=== PATIENT | male | born 1945 | race Caucasian/White ===

== ENCOUNTER 2016-11-23 19:06 | Inpatient (IN) ==
--- NOTE | 2016-11-23 19:38 | Emergency Department Note ---
Arrival - Arrival Chief Complaint: Weakness Stated Complaint: weakness ED Nursing Triage Note: Patient to room via ems. Patient states that about 1 hr [facility] he started getting really weak. He states he has been feeling bad for a couple of days but this afternoon it is worse. Patient was ambulatory on scence. strength in arms and legs are equal bitlateral. No facial droop noted. Mode of Arrival: Stretcher Limitations: No Limitations Source: Patient Time Seen by Provider: 11/23/16 19:33 - History of Present Illness HPI Narrative: This 70-year-old white male presents with a history of 3 hours prior to presentation of being confused and ataxic with profound weakness to the point he needed aid in ambulation and getting up out of a chair. Family members do not report any slurring of speech or focal deficit, just generalized weakness. Prior to this time he had been active and alert with no particular complaints other than a mild headache he experienced yesterday behind the left eye. He does relate some shortness of breath as well as diaphoresis on onset of the situation but no chest pain, nausea, or vomiting.. He is diabetic but his Accu- Cheks were adequate. Patient has no significant cardiac history or prior stroke although he does have a history of bipolar disease. Currently he is in no acute distress lying in the bed Onset (ago): hour(s) (Patient presents 3 hours post onset of symptoms) Consistency: constant Allergies/Adverse Reactions: Allergies Allergy/AdvReac Type Severity Reaction Status Date / Time No Known Allergies Allergy Verified 11/23/16 19:12 Home Medications: Home Medications Medication Instructions Recorded Confirmed Type ARIPiprazole [Aripiprazole] 5 mg PO BEDTIME 03/21/15 05/10/15 History Amlodipine/Valsartan/Hcthiazid 1 each PO DAILY 03/21/15 05/10/15 History [Cftbr-Ehoob-Ypgi 10-320-25 mg] Carvedilol [Coreg] 12.5 mg PO BID 03/21/15 05/10/15 History Mirtazapine [Remeron] 30 mg PO BEDTIME 03/21/15 05/10/15 History amLODIPine [Norvasc] 10 mg PO DAILY 03/21/15 05/10/15 History Atorvastatin [Lipitor] 20 mg PO BEDTIME #30 tablet 03/23/15 05/10/15 Rx metFORMIN [Glucophage] 500 mg PO TID W/MEALS #90 tablet 03/23/15 05/10/15 Rx Levofloxacin Tab [Levaquin Tab] 750 mg PO DAILY #10 tablet 05/10/15 Rx Metoclopramide Tab [Reglan Tab] 5 mg PO ACHS #120 tablet NS 05/10/15 Rx Ranitidine HCl [Zantac] 300 mg PO BEDTIME #30 tablet 05/10/15 Rx Review of System - Review of System 12 point system: reviewed and no additional remarkable complaints except as stated - Review of System Constitutional: Present: as per HPI Respiratory: Present: as per HPI Cardiovascular: Present: as per HPI Gastrointestinal: Present: as per HPI Musculoskeletal: Present: as per HPI Neurological: Present: as per HPI Endocrine: Present: as per HPI Medical,Surgical,& Family Hx - Medical History Cardio: History of: Hypertension Psychological: History of: Bipolar Disorder, Depression Endocrine: History of: Diabetes Mellitus (NIDDM), Dyslipidemia Respiratory: History of: Respiratory Problems (ruputured diaphragm) Gastrointestinal: History of: GERD - Social History Smoking Status: Current every day smoker Frequency of Alcohol Use: None Type of Drug Use: None Exam Physical Examination: GENERAL: Obese white male in no acute distress. HEENT: Normocephalic. No trauma. Moist mucous membranes. EOMI. PERRLA. Left lid lag ENT NML NECK: Supple. No adenopathy. CARDIAC: Regular. No murmurs. Heart rate 67 CHEST: Clear to auscultation. No respiratory distress. O2 sat 95% ABDOMEN: Soft. Nontender. Active bowel sounds. EXTREMITIES: No trauma. Normal ROM. No pedal edema. SKIN: No diaphoresis. No rash. NEURO: Alert. Oriented 3. Motor, sensory, vibratory intact. Again noted was left lid lag no focal deficits. Vital Signs: Vital Signs Temperature 97.5 F L 11/23/16 19:06 Pulse Rate 67 11/23/16 19:06 Respiratory Rate 20 11/23/16 19:15 Blood Pressure 129/77 11/23/16 19:06 O2 Sat by Pulse Oximetry 95 11/23/16 19:06 Course - Reevaluation(s) Reevaluation #1: Discussed with patient need for hospitalization for possible acute stroke. - Consultations Consultation #1: Discussed with hospitalist service who will admit for further evaluation and treatment of probable new lacunar infarct Results - Labs CBC & BMP: 11/23/16 19:11 11/23/16 19:11 Labs: I have reviewed the laboratory noted the normal results. - Impressions EKG: Sinus rhythm at 64. Normal NV interval with right bundle branch block. Nonspecific ST changes. Noted acute injury pattern noted. - Diagnostic Findings Procedure: Chest x-ray: image reviewed by me, report reviewed by me ( Cardiomegaly), CT: image reviewed by me, report reviewed by me (Chronic right basal ganglia lacunar infarct with microvascular ischemia and cerebral atrophy.) Disposition Clinical Impression: Presumed new lacunar infarct, Cardiomegaly Case discussed with: patient, patient's family Disposition: Still a Patient Condition: Stable Time of Disposition: 20:51
[2016-11-23 19:45] LABS: Basophils # 0.1 10*3/uL (0.0-0.2); Eosinophils # 0.5 10*3/uL (0.0-0.87); Hemoglobin 15.6 GM/DL (14.0-18.0); Immature Granulocytes % 0.6 %; Immature Granulocytes Absolute 0.06 #; Lymphocytes # 3.2 10*3/uL (1.4-4.0); Lymphocytes % 31.6 % (21.2-54.2); Mean Corpuscular HGB Conc 34.7 GM/DL (32-36); Mean Corpuscular Hemoglobin 31 PG (27-34); Mean Corpuscular Volume 88.2 FL (87-102); Monocytes # 0.8 10*3/uL (0.11-0.8); Monocytes % 7.9 % (1.7-12.7); Neutrophils # 5.5 10*3/uL (1.4-7.4); Neutrophils % 53.9 % (38.7-73.9); Platelet Count 209 T/CUMM (130-400); White Blood Count 10.1 T/CUMM (4-12)
[2016-11-23 19:48] LABS: PT Patient Result 10.7 SECS; Partial Thromboplastin Time 33.6 SECS (0-40)
[2016-11-23 20:05] LABS: Alanine Aminotransferase 28 U/L (16-61); Albumin 3.9 G/DL (3.4-5.0); Alkaline Phosphatase 89 U/L (45-117); Aspartate Amino Transferase 17 U/L (0-37); Blood Urea Nitrogen 12 MG/DL (7-18); Calcium 9.3 MG/DL (8.5-10.1); Free T4 (Free Thyroxine) 0.83 NG/DL (0.76-1.46); Glucose 103 MG/DL (74-106); Osmolality,Calculated 276.5 MOS/KG (273-304); Sodium 139 MMOL/L (136-145); Total Protein 6.4 G/DL (6.4-8.3); Troponin I Only < 0.015 NG/ML (0.00-0.045)
--- NOTE | 2016-11-23 20:06 | CT Report ---
Exam: CT scan of brain without contrast Date: 11/23/2016 Indication: Mental status changes Comparison: None Patient's classification: Emergency department Technical: Images were obtained from the skull base to the vertex without the use of intravenous contrast. Dose reduction was performed with decreasing kv and mA and automated exposure Total DLP: 997.9 mGy*cm Findings: The brainstem and cerebellum are intact. There is a low density in the right basal ganglia measuring approximate 7.3 mm suggests a small lacunar infarction. Minimal atrophy changes are suspected the ventricles are unremarkable. Small vessel disease is present. Paranasal sinuses globes and cell and mastoids are otherwise intact. Impression: 1. Small lacunar infarction in the right basal ganglia age undetermined. But appears chronic, I have no previous studies available for review 2. Small vessel ischemic change and mild atrophy 3. No obvious acute hemorrhage present. PROCEDURE INTERPRETED AT [facility] DEPARTMENT OF RADIOLOGY Final Report Signed by: Dr. Louie Stevenson
--- NOTE | 2016-11-23 20:08 | EKG Report ---
Please refer to the EKG image. Final interpretation is pending.
[2016-11-23 20:30] LABS: Apearance,Urine Slightly Hazy (Clear); Bilirubin,Urine Negative (Negative); Blood, Urine Negative (Negative); Glucose,Urine (UA) Negative (Negative); Ketones,Urine Negative (Negative); Mucus,Urine Occasional /LPF (Occasional); Nitrite,Urine Negative (Negative); Protein,Urine Negative; RBC,Urine <1 /HPF (0-4); Urine Color Yellow (Yellow); Urine Specific Gravity 1.011 (1.001-1.035); Urine Urobilinogen < 2.0 EU/DL (0.2-1.0); WBC,Urine 1 /HPF (0-6)
--- NOTE | 2016-11-23 20:40 | XRay Report ---
Exam: XR chest 1V portable Date: 11/23/2016 7:34 PM Indication: Altered mental status Comparison: 03/21/2015 Technical: AP portable Findings: Cardiomegaly is present. External cardiac leads are present. No obvious consolidating infiltrate or effusion. Mediastinum and bony structures are otherwise intact. Impression: 1. Cardiomegaly without decompensation or acute infiltrates PROCEDURE INTERPRETED AT [facility] DEPARTMENT OF RADIOLOGY Final Report Signed by: Dr. Louie Stevenson
[2016-11-23 20:41] LABS: Barbiturates Screen,Urine Negative (Negative); Benzodiazepines Screen,Urine Negative (Negative); Cannabinoid Screen,Urine Negative (Negative); Opiate Screen,Urine Negative (Negative); Phencyclidine Screen,Urine Negative (Negative)
--- NOTE | 2016-11-23 20:50 | Hospitalist History & Physical ---
Assessment and Plan (1) Gait disturbance Status: Acute Assessment and plan: The patient is admitted to the hospital for evaluation of gait disturbance and generalized weakness consistent with a lacunar infarction. The patient has an old lacune seen on CAT scan. I suspect this is another small lacunar infarction. The risk of thrombolytic agent for such a small distribution stroke is greater than the benefit that I can perceive. The patient will be admitted to telemetry monitoring and we will give antihypertensive medication. Will check lipid levels, carotid Doppler ultrasound, and MRI scan of brain in the morning. Will obtain consultation with Dr. George Mayes. Current Visit: Yes (2) DM2 (diabetes mellitus, type 2) Status: Acute Current Visit: Yes Qualifiers: Diabetes mellitus complication status: with circulatory complication Diabetes mellitus complication detail: with other circulatory complications Diabetes mellitus correction insulin use: without ferry terminal agent use Qualified Code( s): E11.59 - Type 2 diabetes mellitus with other circulatory complications (3) History of CVA in adulthood Status: Acute Current Visit: Yes (4) Hypertension Status: Chronic Current Visit: No History of Present Illness Chief complaint: Gait disturbance and weakness History of present illness: Mr. Jenkins is a 70 year old male with history of diabetes mellitus type 2 and essential hypertension. The patient was at home in his usual state of health. The patient's noted that he was stumbling and that he was generally weak. The patient did not have lateralizing symptoms. The patient had some slurring of speech without facial weakness. The patient's symptoms were moderate, continuous, and have begun to improve. The symptoms are not associated with fever, chills, shortness of breath. The patient is admitted to the hospital for further evaluation of strokelike symptoms. Home Medications Medication Instructions Recorded Confirmed Type ARIPiprazole [Aripiprazole] 5 mg PO BEDTIME 03/21/15 05/10/15 History Amlodipine/Valsartan/Hcthiazid 1 each PO DAILY 03/21/15 05/10/15 History [Baqss-Puvau-Vnvq 10-320-25 mg] Carvedilol [Coreg] 12.5 mg PO BID 03/21/15 05/10/15 History Mirtazapine [Remeron] 30 mg PO BEDTIME 03/21/15 05/10/15 History amLODIPine [Norvasc] 10 mg PO DAILY 03/21/15 05/10/15 History Atorvastatin [Lipitor] 20 mg PO BEDTIME #30 tablet 03/23/15 05/10/15 Rx metFORMIN [Glucophage] 500 mg PO TID W/MEALS #90 tablet 03/23/15 05/10/15 Rx Levofloxacin Tab [Levaquin Tab] 750 mg PO DAILY #10 tablet 05/10/15 Rx Metoclopramide Tab [Reglan Tab] 5 mg PO ACHS #120 tablet NS 05/10/15 Rx Ranitidine HCl [Zantac] 300 mg PO BEDTIME #30 tablet 05/10/15 Rx Allergies Allergy/AdvReac Type Severity Reaction Status Date / Time No Known Allergies Allergy Verified 11/23/16 19:12 Medical,Surgical,& Family Hx - Medical History Cardio: History of: Hypertension Psychological: History of: Bipolar Disorder, Depression Endocrine: History of: Diabetes Mellitus (NIDDM), Dyslipidemia Respiratory: History of: Respiratory Problems (ruputured diaphragm) Gastrointestinal: History of: GERD - Family History Family History: Reports;: Family Hypertension - Social History Smoking Status: Current every day smoker Frequency of Alcohol Use: None Type of Drug Use: None Marital Status: Lives With:: Spouse Functional capacity: independent ambulation 12 point system: reviewed and no additional remarkable complaints except as stated Exam - Constitutional Vitals: Period Temp Pulse Resp BP Sys/Sin Pulse Ox Last 24 Hr 97.5 F-97.5 F 67-67 20-20 129-129/77-77 95 Exam: Constitutional System: Mild distress. No tremulousness. Head: Normocephalic, atraumatic. Ears, Nose and Throat System: No evidence of Otitis or Mastoiditis. No epistaxis or discharge Eyes System: Pupils equal, round, and reactive. Extraocular muscles intact. The patient has some lid lag but the weakness is not localizing Neck: Supple, without adenopathy, No jugular venous distention. No thyromegaly , neck mass, or prior surgery apparent. Respiratory System: Chest clear to auscultation. Cardiovascular System: Heart with regular rate and rhythm. No murmur. GI System: Abdomen soft, nontender. Normo active bowel sounds present. Musculoskeletal System: limbs with no pedal edema. Full distal pulses. Neurological System: No discernable sensory deficit. No aphasia Psychiatric System: Conversation is rational Results - Labs CBC & BMP: 11/23/16 19:11 11/23/16 19:11 Lab Results: I have reviewed the past 24 hour labs - EKG EKG shows: sinus rhythm - Diagnostic Findings Procedure: CT: report reviewed by me (CT scan of brain reveals an old lacunar infarction)
[2016-11-23 21:10] LABS: Platelet Estimate Normal
[2016-11-23] MEDS ORDERED: ONDANSETRON 4 MG/2 ML VIAL IV PRN (21:43)
[2016-11-23] MEDS ORDERED: NIFEdipine 10 MG CAPSULE PO PRN (21:43)
[2016-11-23] MEDS ORDERED: DEXTROSE 50% 25 GM/50 ML VIAL IV PRN (21:43)
[2016-11-23] MEDS ORDERED: LABETALOL 20 MG/4 ML SYRINGE IV PRN (21:43)
[2016-11-23] MEDS ORDERED: ACETAMINOPHEN 325 MG TABLET PO PRN (21:43)
[2016-11-23] MEDS ORDERED: GLUCAGON 1 MG VIAL IM PRN (21:43)
[2016-11-23] MEDS: MIRTAZAPINE 30 MG TABLET PO SCH (22:03)
[2016-11-23] MEDS: ENOXAPARIN 40 MG/0.4 ML SYRINGE SUBCUT SCH (22:03)
[2016-11-23] MEDS: ATORVASTATIN 20 MG TABLET PO SCH (22:03)
[2016-11-23] MEDS: SODIUM CHLORIDE 0.9% 1,000 ML IV SCH (22:03)
[2016-11-23] MEDS ORDERED: NICOTINE 21 MG/24 HR PATCH TRANSDERM PRN (22:05)
[2016-11-24 03:29] LABS: Basophils # 0.1 10*3/uL (0.0-0.2); Basophils % 0.6 % (0.0-0.8); Eosinophils # 0.4 10*3/uL (0.0-0.87); Eosinophils % 3.6 % (0.00-10.9); Hematocrit 41.3 VOL% (42.0-52.0); Hemoglobin 14.4 GM/DL (14.0-18.0); Immature Granulocytes % 0.6 %; Immature Granulocytes Absolute 0.06 #; Lymphocytes # 1.9 10*3/uL (1.4-4.0); Mean Corpuscular HGB Conc 34.9 GM/DL (32-36); Mean Corpuscular Hemoglobin 30 PG (27-34); Mean Corpuscular Volume 87.1 FL (87-102); Monocytes # 0.7 10*3/uL (0.11-0.8); Monocytes % 7.1 % (1.7-12.7); Neutrophils # 7.3 10*3/uL (1.4-7.4); Neutrophils % 70.1 % (38.7-73.9); Platelet Count 199 T/CUMM (130-400); Red Blood Count 4.74 MC/CUMM (3.8-5.5); Red Cell Distribution Width 12.1 % (9.3-17.3); White Blood Count 10.4 T/CUMM (4-12)
[2016-11-24 03:59] LABS: Calcium 8.7 MG/DL (8.5-10.1); Osmolality,Calculated 282.4 MOS/KG (273-304); Potassium 3.7 MMOL/L (3.5-5.1)
[2016-11-24 04:04] LABS: Blood Urea Nitrogen 13 MG/DL (7-18); Calcium 8.6 MG/DL (8.5-10.1); Glucose 194 MG/DL (74-106); Magnesium 1.9 MG/DL (1.8-2.4); Osmolality,Calculated 283.4 MOS/KG (273-304); Potassium 3.7 MMOL/L (3.5-5.1); Sodium 140 MMOL/L (136-145); Troponin I Only < 0.015 NG/ML (0.00-0.045)
[2016-11-24 04:05] LABS: Risk Ratio 2.59; VLDL CHOLESTEROL 29.6 MG/DL
[2016-11-24] MEDS: INSULIN LISPRO 100 UNIT/ML SUBCUT SCH ×4 (07:30→22:38)
--- NOTE | 2016-11-24 07:49 | Ultrasound Report ---
Bilateral carotid Doppler. Grayscale, color-flow, and spectral analysis performed and interpreted. Indication: Gait disturbance. Mild calcific plaque is noted at the right carotid bulb and origin of the right internal carotid artery. The right internal carotid artery peak systolic velocity is 85 cm/s, with an IC/CC ratio of 1.2. The left internal carotid artery peak systolic velocity is 65 cm/s, with an IC/CC ratio 0.9. There is antegrade flow within each vertebral artery. Impression: Using in a SPECT criteria, findings consistent with less than 50% stenosis bilaterally. PROCEDURE INTERPRETED AT [facility] DEPARTMENT OF RADIOLOGY Final Report Signed by: Dr. Trinity Gonzalez
[2016-11-24] MEDS: ASPIRIN 325 MG TABLET PO SCH (08:48)
[2016-11-24] MEDS: VALSARTAN 160 MG TABLET PO SCH (08:48)
[2016-11-24] MEDS: amLODIPine 10 MG TABLET PO SCH (08:49)
[2016-11-24] MEDS: PANTOPRAZOLE 40 MG TABLET PO SCH (08:51)
--- NOTE | 2016-11-24 09:27 | EKG Report ---
Please refer to the EKG image. Final interpretation is pending.
[2016-11-24] MEDS: hydroCHLOROthiazide 25 MG TABLET PO SCH (10:02)
--- NOTE | 2016-11-24 11:17 | XRay Report ---
Orbits for MRI. No radiodense foreign body is seen at or about the orbits. PROCEDURE INTERPRETED AT [facility] DEPARTMENT OF RADIOLOGY Final Report Signed by: Dr. Trinity Gonzalez
--- NOTE | 2016-11-24 13:15 | Magnetic Resonance Report ---
Referring physician: Aren Strong Exam: MRI brain without contrast Date: November 24, 2016 Comparison: CT brain without contrast November 23, 2016 Reason: Gait disturbance The patient is an inpatient who was admitted on November 23, 2016. Technique: MRI of the brain was performed without the use of contrast. Obtained images include sagittal T1, axial diffusion-weighted, axial FLAIR, axial T2, coronal T2, axial gradient and axial T1 sequences. A 1.5 Venus magnet was used. Findings: There is mild generalized cerebral atrophy/volume loss, which is upper normal for age. Small scattered areas of T2/FLAIR hyperintensity are seen within the cerebral white matter bilaterally. This is nonspecific but is most consistent with mild chronic microvascular ischemic change. Less likely considerations include a demyelinating process, vasculitis or viral process. There are small remote infarctions within the right basal ganglia, and there is a small remote subcortical infarction within the superior/anterior aspect of the left parietal lobe No hydrocephalus or midline shift is present. There is no evidence of recent intracranial hemorrhage, abnormal mass effect or an acute infarction. No abnormal extra-axial fluid collection is identified, and major vascular flow voids are visualized. The patient is likely status post right cataract surgery. The orbits, sella and brainstem are unremarkable. The paranasal sinuses and mastoid air cells are clear. Impression: 1. No acute intracranial process is identified. 2. Small remote infarctions within the right basal ganglia and small remote subcortical infarction at the superior/anterior aspect of the left parietal lobe. 3. Probable mild chronic microvascular ischemic change. PROCEDURE INTERPRETED AT [facility] DEPARTMENT OF RADIOLOGY Final Report Signed by: Dr. Suresh Khan
--- NOTE | 2016-11-24 15:23 | Neurology Consult Note ---
History of Present Illness History of present illness: Mr. Jenkins is a 70 year old right-handed white gentleman with past medical history significant for diabetes mellitus type 2 and essential hypertension. The patient was at home in his usual state of health. The patient's noted that he was stumbling and that he was generally weak. The patient did not have lateralizing symptoms. The patient had some slurring of speech without facial weakness. reported that he was quite confused and disoriented and talking out of his head. The patient's symptoms were moderate, continuous, and have begun to improve. also reporting that he is been having increasing memory difficulties which is been going on for last several months. He is being very forgetful and having short-term memory difficulties. MRI of the brain reveals no acute abnormalities. Home Medications Medication Instructions Recorded Confirmed Type ARIPiprazole [Aripiprazole] 5 mg PO BEDTIME 03/21/15 05/10/15 History Amlodipine/Valsartan/Hcthiazid 1 each PO DAILY 03/21/15 05/10/15 History [Sxfzf-Wguma-Ofri 10-320-25 mg] Carvedilol [Coreg] 12.5 mg PO BID 03/21/15 05/10/15 History Mirtazapine [Remeron] 30 mg PO BEDTIME 03/21/15 05/10/15 History amLODIPine [Norvasc] 10 mg PO DAILY 03/21/15 05/10/15 History Atorvastatin [Lipitor] 20 mg PO BEDTIME #30 tablet 03/23/15 05/10/15 Rx metFORMIN [Glucophage] 500 mg PO TID W/MEALS #90 tablet 03/23/15 05/10/15 Rx Levofloxacin Tab [Levaquin Tab] 750 mg PO DAILY #10 tablet 05/10/15 Rx Metoclopramide Tab [Reglan Tab] 5 mg PO ACHS #120 tablet NS 05/10/15 Rx Ranitidine HCl [Zantac] 300 mg PO BEDTIME #30 tablet 05/10/15 Rx Allergies Allergy/AdvReac Type Severity Reaction Status Date / Time No Known Allergies Allergy Verified 11/23/16 19:12 12 point system: reviewed and no additional remarkable complaints except as stated Medical,Surgical,& Family Hx - Medical History Cardio: History of: Hypertension Psychological: History of: Bipolar Disorder, Depression Endocrine: History of: Diabetes Mellitus (NIDDM), Dyslipidemia Respiratory: History of: Respiratory Problems (ruputured diaphragm) Gastrointestinal: History of: GERD - Family History Family History: Reports;: Family Hypertension - Social History Smoking Status: Current every day smoker Frequency of Alcohol Use: None Type of Drug Use: None Exam - Constitutional Vitals: Period Temp Pulse Resp BP Sys/Sin Pulse Ox Last 24 Hr 97.1 F-98.2 F 63-86 18-20 130-150/77-86 95-96 Exam: GENERAL: Patient is in no acute distress. NECK: Neck is supple. There is no JVD. No carotid bruits present. No thyroid masses. CVS: First and second heart sounds are normal. There is no S3 present. Regular rate and rhythm. RESPIRATORY: Lungs are clear to auscultation without any rales or rhonchi. ABDOMEN: Soft and non-tender. Bowel sounds are present. There is no hepatosplenomegaly. EXT: There is no palpable edema. Peripheral pulses are present. Skin: No rashes Central Nervous system: General: Alert, awake and Oriented x 3 Speech: Fluent Comprehension: Intact and normal Facial expressions: Normal Cranial Nerves: CN1/Olfactory: Normal CN II/ Optic: Normal, Visual Rendon unreliable CN III, and : PHYLICIA & EOMI CN V: Normal & intact CN VII: face is symmetric CNVIII: Normal CN XI/X/XI/XII: Intact and Normal Motor: Bulk and Tone is normal. Strength in the right 4+/5 Strength in the left 4+/5 Sensory: for all the modalities of PP, LT and temp sense Reflexes: 1+ and symmetrical Cerebellar function: Normal finger to nose and heel to webb testing. Toes: Equivocal Gait: Not tested Results - Labs CBC & BMP: 11/24/16 02:52 11/24/16 02:52 Assessment and Plan (1) Delirium due to another medical condition Status: Acute Assessment and plan: Suspect underlying dementia as well. No intervention indicated at this time. will work him up as an out patient. Thank you for the consult follow-up in 4 weeks Current Visit: Yes Specialty Discharge - Follow Up or Referrals Follow up with: Pranay Carrero MD [Physician] - 1 Month
--- NOTE | 2016-11-24 15:32 | Hospitalist Progress Note ---
Assessment and Plan (1) Gait disturbance Status: Acute Assessment and plan: The patient is admitted to the hospital for evaluation of gait disturbance and generalized weakness consistent with a lacunar infarction. The patient has an old lacune seen on CAT scan. The patient has no evidence of new stroke. The patient had some delirium last night. I am going to reduce Shepherd and restart Neurontin at lower dose. If the patient's delirium does not return tonight I anticipate him discharge home tomorrow. Dr. George Mayes believes the patient may have some early dementia symptoms which are worsening his delirium and suggest that he needs an outpatient dementia evaluation Current Visit: Yes (2) DM2 (diabetes mellitus, type 2) Status: Acute Current Visit: Yes Qualifiers: Diabetes mellitus complication status: with circulatory complication Diabetes mellitus complication detail: with other circulatory complications Diabetes mellitus emt intermediate insulin use: without fci use Qualified Code( s): E11.59 - Type 2 diabetes mellitus with other circulatory complications (3) History of CVA in adulthood Status: Acute Current Visit: Yes (4) Hypertension Status: Chronic Current Visit: No Hospitalist: Subjective Interval history: The patient was admitted to the hospital with generalized weakness and some delirium symptoms. I coordinated care with Dr. George Mayes today. The patient' s MRI scan reveals previous lacunar infarctions without new acute CVA. I had family discussion with the patient's and we discussed the etiology and treatment of delirium. The patient had been taking chronic opiate at the pain clinic and has recently discontinued long-acting narcotic. Exam - Constitutional Vitals: Period Temp Pulse Resp BP Sys/Sin Pulse Ox Last 24 Hr 97.1 F-98.2 F 63-86 18-20 130-150/77-86 95-96 Exam: Constitutional System: No distress. No tremulousness. The patient is presently oriented in 3 respects Head: Normocephalic, atraumatic. Ears, Nose and Throat System: No evidence of Otitis or Mastoiditis. No epistaxis or discharge Eyes System: Pupils equal, round, and reactive. Extraocular muscles intact. The patient has some lid lag but the weakness is not localizing Neck: Supple, without adenopathy, No jugular venous distention. No thyromegaly , neck mass, or prior surgery apparent. Respiratory System: Chest clear to auscultation. Cardiovascular System: Heart with regular rate and rhythm. No murmur. GI System: Abdomen soft, nontender. Normo active bowel sounds present. Musculoskeletal System: limbs with no pedal edema. Full distal pulses. Neurological System: No discernable sensory deficit. No aphasia Psychiatric System: Conversation is rational Results - Labs CBC & BMP: 11/24/16 02:52 11/24/16 02:52 Lab Results: I have reviewed the past 24 hour labs - Diagnostic Findings Procedure: MRI: report reviewed by me (The patient's MR scan reveals previous lacunar infarctions without acute CVA) Quality Measures - Stroke Onset of Symptoms Date: 11/21/16 Specialty Discharge - Follow Up or Referrals Follow up with: Pranay Carrero MD [Physician] - 1 Month
[2016-11-24] MEDS: MIRTAZAPINE 30 MG TABLET PO SCH (20:41)
[2016-11-24] MEDS: ATORVASTATIN 20 MG TABLET PO SCH (20:41)
[2016-11-24] MEDS: GABAPENTIN 100 MG CAPSULE PO SCH (20:41)
[2016-11-24] MEDS: ENOXAPARIN 40 MG/0.4 ML SYRINGE SUBCUT SCH (20:43)
[2016-11-25] MEDS: SODIUM CHLORIDE 0.9% 1,000 ML IV SCH (09:18)
[2016-11-25] MEDS: GABAPENTIN 100 MG CAPSULE PO SCH (09:20)
[2016-11-25] MEDS: hydroCHLOROthiazide 25 MG TABLET PO SCH (09:20)
[2016-11-25] MEDS: VALSARTAN 160 MG TABLET PO SCH (09:21)
[2016-11-25] MEDS: ASPIRIN 325 MG TABLET PO SCH (09:21)
[2016-11-25] MEDS: amLODIPine 10 MG TABLET PO SCH (09:21)
[2016-11-25] MEDS: PANTOPRAZOLE 40 MG TABLET PO SCH (09:21)
[2016-11-25] MEDS: INSULIN LISPRO 100 UNIT/ML SUBCUT SCH ×2 (09:23→13:31)
--- NOTE | 2016-11-25 10:18 | Discharge Summary ---
Hospital Course - Hospital Course Hospital Course: The patient was admitted to the hospital with some delirium last weakness. The patient had neurology evaluation with Dr. George Mayes. MRI scan revealed some old lacunar infarctions but no new stroke. Carotid Doppler studies did not reveal any significant stenosis. Dr. George Mayes was concerned that the patient may have some dementia symptoms. We adjusted the patient's medication and reduced any medicines which might cause delirium. The patient will follow up with Dr. George Mayes as an outpatient. On the date of discharge, the patient's chest is clear and abdomen soft. Heart has regular rate and rhythm. Sensorium is clear and he did not have any wandering or delirium noted during the last night. Uico-ms-yarg time required during discharge was 32 minutes - Time spent with patient Time with patient DS: Greater than 30 minutes Diagnosis - Discharge Diagnosis (1) Gait disturbance Status: Resolved (2) DM2 (diabetes mellitus, type 2) Status: Chronic (3) History of CVA in adulthood Status: Chronic (4) Hypertension Status: Chronic Specialty Discharge - Follow Up or Referrals Follow up with: Pranay Carrero MD [Physician] - 1 Month Discharge Plan - Discharge Data Disposition: Disch To Home/Self Care Condition at Discharge: Stable Discharge Diet: diabetic diet Activity: resume usual activities as tolerated - Discharge Medications New Aspirin Tab 325 mg PO DAILY #100 tablet Gabapentin Cap/Tab [Neurontin Cap/Tab] 200 mg PO BID #100 capsule Continue amLODIPine [Norvasc] 10 mg PO DAILY Mirtazapine [Remeron] 30 mg PO BEDTIME ARIPiprazole [Aripiprazole] 5 mg PO BEDTIME Amlodipine/Valsartan/Hcthiazid [Qqouv-Yzdei-Ewdr 10-320-25 mg] 1 each PO DAILY Carvedilol [Coreg] 12.5 mg PO BID metFORMIN [Glucophage] 500 mg PO TID W/MEALS #90 tablet Atorvastatin [Lipitor] 20 mg PO BEDTIME #30 tablet Metoclopramide Tab [Reglan Tab] 5 mg PO ACHS #120 tablet NS Discontinued Levofloxacin Tab [Levaquin Tab] 750 mg PO DAILY #10 tablet Ranitidine HCl [Zantac] 300 mg PO BEDTIME #30 tablet - Follow Up or Referral Follow Up: Pranay Carrero MD [Physician] - 1 Month - Forms/Instructions Instructions: Ischemic Stroke (DC), Self Care Measures After a Stroke (DC) Exam - Constitutional Vitals: Period Temp Pulse Resp BP Sys/Sin Pulse Ox Last 24 Hr 97.1 F-98.3 F 62-82 17-20 101-145/54-81 92-97 Discharge Results Labs on day of discharge: Labs from last 24 hours 11/25/16 11/24/16 11/24/16 07:12 19:09 15:47 POC Glucose 126 H 152 H 140 H 11/24/16 11:29 POC Glucose 105 DS: Provider Date of admission: 11/23/16 20:36 Primary care physician: Desire Nathan MD Attending physician on admission: Aren Strong MD Consults: 11/23/16 21:43 Consult to Case Mgmt/Social Srvs [CONS] Routine Reason for Case Mgmt/Social Srvs: Discharge Planning Consult to Occupational Therapy [CONS] Routine Reason for Occupational Therapy: Evaluate and Treat Start Therapy: Tomorrow Consult Comment: Stroke Consult to Physical Therapy [CONS] Routine Reason for Physical Therapy: Evaluate and Treat Start Therapy: Tomorrow Consult Comment: stroke Consult to Physician [CONS] Routine Comment: gait disturbance, possible acute cva Consulting Provider: Pranay Carrero Consult to Specialist Group: Neurology Person Notified: Tanya Date Notified: 11/24/16 Time Notified: 11:42 Consult Notification Comment: Notified of neurology consult for Dr. Carrero to see Discharging clinician: Aren Strong MD
[2016-11-25 12:09] VITALS: BP 145/85
== END 2016-11-25 14:15 | disposition home or self-care (01) | DRG 884 ==
LOC: EDUNIT# → EDBD → N.ED 19:06 → N.EDINP 20:36 → N.5E 21:09
PROVIDERS: ADMIT Internal Medicine; ATTEND Internal Medicine

== ENCOUNTER 2016-12-02 21:24 | Observation (INO) ==
[2016-12-02] MEDS ORDERED: ALBUTEROL/IPRATROPIUM 3 ML NEB RESP TX STA (22:22)
[2016-12-02] MEDS ORDERED: methylPREDNISolone SOD SUC 125 MG/2 ML VIAL IV STA (22:22)
--- NOTE | 2016-12-02 22:31 | EKG Report ---
Stationary ECG Study 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
--- NOTE | 2016-12-02 22:32 | Emergency Department Note ---
IJulieta Kasabria, am scribing for, and in the presence of, Abimael Castillo MD 22:28. IJonathan Charles R, MD, personally performed the services described in this documentation, ascribed by Vee Rendon in my presence, and it is both accurate and complete 232 . Arrival - Arrival Chief Complaint: Weakness Stated Complaint: possible stroke/confusion/hallucinations ED Nursing Triage Note: Pt family thinks he is having another stroke c/o confused, weakness, numbess in both legs, left eye droping. Pt was admitted from ED approx 1 week ago for poss stroke. Mode of Arrival: Ambulatory Limitations: No Limitations Source: Patient Time Seen by Provider: 12/02/16 21:45 - History of Present Illness HPI Narrative: This is a 70 y/o white male presenting to the ED with c/o possibly having another stroke, confusion, numbness to lower legs bilaterally, weakness, left eye drop, and visual hallucinations. Pt was hospitalized with a stroke one week ago that effected his left side. He now states he is having visual hallucination and paranoia of people "trying to get him". Pt is blind in his right eye. He has an appointment with Dr. Garcia which is scheduled for December 14. While admitted he saw Dr. Strong and Dr. Carrero. He takes ASA daily. He has a PMHx of HTN, bipolar disorder, depression, and ruptured diaphragm. Consistency: constant Severity: moderate Allergies/Adverse Reactions: Allergies Allergy/AdvReac Type Severity Reaction Status Date / Time No Known Allergies Allergy Verified 12/02/16 21:35 Home Medications: Home Medications Medication Instructions Recorded Confirmed Type ARIPiprazole [Aripiprazole] 5 mg PO BEDTIME 03/21/15 11/24/16 History Amlodipine/Valsartan/Hcthiazid 1 each PO DAILY 03/21/15 11/24/16 History [Qdrzb-Mlwxf-Hxti 10-320-25 mg] Carvedilol [Coreg] 12.5 mg PO BID 03/21/15 11/24/16 History Mirtazapine [Remeron] 30 mg PO BEDTIME 03/21/15 11/24/16 History amLODIPine [Norvasc] 10 mg PO DAILY 03/21/15 11/24/16 History Atorvastatin [Lipitor] 20 mg PO BEDTIME #30 tablet 03/23/15 11/24/16 Rx metFORMIN [Glucophage] 500 mg PO TID W/MEALS #90 tablet 03/23/15 11/24/16 Rx Metoclopramide Tab [Reglan Tab] 5 mg PO ACHS #120 tablet NS 05/10/15 11/24/16 Rx Aspirin Tab 325 mg PO DAILY #100 tablet 11/25/16 Rx Gabapentin Cap/Tab [Neurontin 200 mg PO BID #100 capsule 11/25/16 Rx Cap/Tab] Review of System - Review of System 12 point system: reviewed and no additional remarkable complaints except as stated - Review of System Constitutional: Absent: chills, fever, weakness Eyes: Present: other (left eye drop ) Head/Ears/Nose/Throat: Absent: earache, nasal drainage Respiratory: Absent: cough, respiratory distress, wheezing Cardiovascular: Absent: chest pain, dyspnea on exertion Gastrointestinal: Absent: abdominal pain, nausea, vomiting Genitourinary male: Absent: dysuria Musculoskeletal: Absent: arm pain, back pain, leg pain, neck pain Skin: Absent: rash Neurological: Present: headache, weakness, numbness (BLE ), confusion, abnormal gait. Absent: vertigo Psychiatric: Present: visual hallucinations (paranoia and people trying to "get him") Hematological/Lymphatic: Absent: easy bleeding Allergic/Immunologic: Absent: facial swelling Medical,Surgical,& Family Hx - Medical History Cardio: History of: Hypertension Psychological: History of: Bipolar Disorder, Depression Endocrine: History of: Dyslipidemia Respiratory: History of: Respiratory Problems (ruputured diaphragm) Gastrointestinal: History of: GERD - Social History Smoking Status: Current every day smoker Frequency of Alcohol Use: None Type of Drug Use: None Exam Vital Signs: Vital Signs Temperature 99.1 F 12/02/16 21:26 Pulse Rate 64 12/02/16 23:55 Respiratory Rate 16 12/02/16 23:55 Blood Pressure 138/76 12/02/16 21:26 O2 Sat by Pulse Oximetry 94 L 12/02/16 23:55 - General General appearance: alert, in no apparent distress, other (confused) - Head Head exam: Present: atraumatic, normocephalic, normal inspection - Eye Eye exam: Present: PERRL, EOMI. Absent: normal appearance (left eye dropping; blind in right eye ) - ENT ENT exam: Present: normal exam, normal oropharynx, mucous membranes moist, TM's normal bilaterally, normal external ear exam - Neck Neck exam: Present: normal inspection, full ROM, trachea midline. Absent: tenderness - Chest Chest inspection: Present: normal inspection, symmetric chest wall rise. Absent : tenderness - Respiratory Respiratory exam: Present: rales (bilateral ), wheezes (bilateral ). Absent: normal lung sounds bilaterally - Cardiovascular Cardiovascular exam: Present: regular rate, normal rhythm, normal heart sounds, murmur - Abdominal Exam Abdominal exam: Present: soft, normal bowel sounds. Absent: distention, tenderness - Extremities Exam Extremities exam: Present: normal inspection, full ROM, normal capillary refill. Absent: tenderness, calf tenderness - Back Exam Back exam: Present: normal inspection, full ROM. Absent: tenderness - Neurological Exam Neurological exam: Present: alert, oriented X3, CN II-XII intact, normal gait, other (drift to upper and lower extremities; left sided weakness ). Absent: reflexes normal - Psychiatric Psychiatric exam: Present: normal affect, other (visual hallucinations ). Absent: normal mood - Skin Skin exam: Present: warm, dry, intact, normal color. Absent: rash, diaphoresis Course - Consultations Consultation #1: Hospitalist will admit patient Time: 00:40 Results - Labs CBC & BMP: 12/02/16 21:50 12/02/16 21:50 Disposition Clinical Impression: Confusion, Altered mental status, Hallucination Case discussed with: patient, patient's family Disposition: Still a Patient Condition: Guarded Time of Disposition: 00:40 NIH Stroke Score - Stroke Score Initial Assessment Level of Consciousness: Drowsy Level of Consciousness Questions: Answers Both Correctly Level of Consciousness Commands: Obeys Both Correctly Best Gaze: Normal Visual Rendon: No Visual Loss Facial Palsy: Normal Motor - Right Arm: No Drift Motor - Left Arm: Drift Motor - Right Leg: No Drift Limb Ataxia: Absent Sensory (Pin Prick): Normal Best Language: Normal Dysarthria: Normal Extinction / Inattention (Neglect): No Neglect
[2016-12-02 22:40] LABS: Basophils # 0.1 10*3/uL (0.0-0.2); Basophils % 0.9 % (0.0-0.8); Eosinophils # 0.5 10*3/uL (0.0-0.87); Eosinophils % 6.1 % (0.00-10.9); Hematocrit 44.2 VOL% (42.0-52.0); Hemoglobin 15.1 GM/DL (14.0-18.0); Immature Granulocytes % 0.7 %; Immature Granulocytes Absolute 0.06 #; Lymphocytes # 2.5 10*3/uL (1.4-4.0); Lymphocytes % 28.4 % (21.2-54.2); Mean Corpuscular HGB Conc 34.2 GM/DL (32-36); Mean Corpuscular Hemoglobin 30 PG (27-34); Mean Corpuscular Volume 89.1 FL (87-102); Mean Platelet Volume 11.3 FL (9.6-12.0); Monocytes # 0.6 10*3/uL (0.11-0.8); Monocytes % 6.8 % (1.7-12.7); Neutrophils % 57.1 % (38.7-73.9); Platelet Count 194 T/CUMM (130-400); Red Blood Count 4.96 MC/CUMM (3.8-5.5); Red Cell Distribution Width 12.3 % (9.3-17.3); White Blood Count 8.8 T/CUMM (4-12)
[2016-12-02] MEDS ORDERED: methylPREDNISolone SOD SUC 125 MG/2 ML VIAL ONE (22:47)
[2016-12-02 22:49] LABS: Acetaminophen < 2.0 UG/ML (10-30); Salicylate < 2.8 MG/DL (2.8-20)
[2016-12-02 22:56] LABS: Alanine Aminotransferase 47 U/L (16-61); Albumin 3.8 G/DL (3.4-5.0); Alkaline Phosphatase 113 U/L (45-117); Aspartate Amino Transferase 18 U/L (0-37); Blood Urea Nitrogen 15 MG/DL (7-18); Calcium 8.5 MG/DL (8.5-10.1); Glucose 198 MG/DL (74-106); Magnesium 1.8 MG/DL (1.8-2.4); Osmolality,Calculated 283.5 MOS/KG (273-304); Potassium 3.5 MMOL/L (3.5-5.1); Sodium 139 MMOL/L (136-145); Total Protein 6.6 G/DL (6.4-8.3); Troponin I Only < 0.015 NG/ML (0.00-0.045)
[2016-12-02 23:08] LABS: Ammonia 31 UMOL/L (11-32)
--- NOTE | 2016-12-02 23:13 | CT Report ---
CT head/brain wo con Indication: Mental status changes. CT BRAIN WITH AND WITHOUT CONTRAST DLP: 1026 mGy*cm. One or more of the following dose reduction techniques was used: Automated exposure control, adjustment of the mA and/or kV according the patient size, or use of iterative reconstruction techniques. Comparison: 11/23/2016. Date of admission: 12/02/2016. Technique: Axial CT images of the brain were obtained before and after the IV administration of Omnipaque 350, 80 cc. Findings: Lacunar infarct right external capsule is stable. No new ischemic changes identified. Mild atrophy and mild patchy periventricular white matter hypodensity is unchanged. No hemorrhage, mass or mass effect. No bone lesions. Visualized sinuses and mastoid air cells remain clear. Impression: No change from 9 days ago with stable mild atrophy, small vessel ischemic change and old right basal ganglia lacunar infarct. PROCEDURE INTERPRETED AT [facility] DEPARTMENT OF RADIOLOGY Final Report Signed by: Bakari Ramos M.D.
--- NOTE | 2016-12-02 23:13 | XRay Report ---
XR chest 1V portable Indication: Altered mental status. Chest one view: Comparison 11/23/2016. Mild cardiomegaly and normal mediastinal contour stable. Lung volumes remain low with central pulmonary vascular crowding. No discrete infiltrate is shown. There is persistent scarring at the left lung base laterally. Impression: Continued pulmonary hypoinflation, left basilar scarring, and borderline to mild cardiomegaly. No change. PROCEDURE INTERPRETED AT [facility] DEPARTMENT OF RADIOLOGY Final Report Signed by: Bakari Ramos M.D.
[2016-12-03 00:25] LABS: Apearance,Urine CLEAR (Clear); Bilirubin,Urine Negative (Negative); Blood, Urine Negative (Negative); Glucose,Urine (UA) 50 mg/dL (Negative); Ketones,Urine Negative (Negative); Nitrite,Urine Negative (Negative); Protein,Urine Negative; RBC,Urine <1 /HPF (0-4); Urine Color Yellow (Yellow); Urine Specific Gravity 1.012 (1.001-1.035); Urine Urobilinogen < 2.0 EU/DL (0.2-1.0); WBC,Urine 1 /HPF (0-6)
[2016-12-03] MEDS ORDERED: ONDANSETRON 4 MG/2 ML VIAL IV PRN (01:37)
--- NOTE | 2016-12-03 01:51 | Hospitalist History & Physical ---
Assessment and Plan (1) History of stroke Status: Acute Current Visit: Yes (2) Hallucination Status: Acute Assessment and plan: We will plan for the patient is to admit him to our service. We will consult case management to have [facility] evaluate the patient. Patient is very insightful about his hallucinations. He is under no impression that they are real. I do feel that he would be appropriate without one-on-one observation. Current Visit: Yes History of Present Illness Chief complaint: Visual hallucinations History of present illness: Mr. Jenkins is a 70 year old male with past medical history of an old stroke who tells me that he has been having visual hallucinations 1 year. He thought it was just his eyesight for most of this time. He was hospitalized a couple of weeks ago. Patient said that he was diagnosed with stroke. Per review of the records Dr. Carrero thought that it was underlying dementia causing some of his problems. Patient said that he was acting like he did last time his got concerned that he was having an additional stroke. She wanted him to come up to our hospital for further evaluation. I examined the patient in the emergency room. Per my interview with the patient he says the whole idea of hallucinations only came to him for the past 2-3 weeks. He was discharged from the hospital he had a follow-up appointment with rima 2 days later. This made me suspect that there is underlying psychiatric problem with this patient. And he did tell me later that he was diagnosed with bipolar in the past. I brought up the idea of him talking with [facility] in he seemed to be real receptive to that idea. Home Medications Medication Instructions Recorded Confirmed Type ARIPiprazole [Aripiprazole] 5 mg PO BEDTIME 03/21/15 12/03/16 History Amlodipine/Valsartan/Hcthiazid 1 each PO DAILY 03/21/15 12/03/16 History [Ygual-Bkdxy-Fwli 10-320-25 mg] Carvedilol [Coreg] 12.5 mg PO BID 03/21/15 12/03/16 History Mirtazapine [Remeron] 30 mg PO BEDTIME 03/21/15 12/03/16 History amLODIPine [Norvasc] 10 mg PO DAILY 03/21/15 12/03/16 History Atorvastatin [Lipitor] 20 mg PO BEDTIME #30 tablet 03/23/15 12/03/16 Rx metFORMIN [Glucophage] 500 mg PO TID W/MEALS #90 tablet 03/23/15 12/03/16 Rx Metoclopramide Tab [Reglan Tab] 5 mg PO ACHS #120 tablet NS 05/10/15 12/03/16 Rx Aspirin Tab 325 mg PO DAILY #100 tablet 11/25/16 12/03/16 Rx Gabapentin Cap/Tab [Neurontin 200 mg PO BID #100 capsule 11/25/16 12/03/16 Rx Cap/Tab] Allergies Allergy/AdvReac Type Severity Reaction Status Date / Time No Known Allergies Allergy Verified 12/02/16 21:35 Medical,Surgical,& Family Hx - Medical History Cardio: History of: Hypertension Psychological: History of: Bipolar Disorder, Depression Endocrine: History of: Dyslipidemia Respiratory: History of: Respiratory Problems (ruputured diaphragm) Gastrointestinal: History of: GERD - Surgical History Additional Surgical History: Ruptured diaphragm - Family History Family History: Reports;: Family Cancer - Social History Smoking Status: Current every day smoker Frequency of Alcohol Use: None Type of Drug Use: None 12 point system: reviewed and no additional remarkable complaints except as stated Exam - Constitutional Vitals: Period Temp Pulse Resp BP Sys/Sin Pulse Ox Last 24 Hr 99.1 F 64-78 16-21 138/76 93-94 General appearance: over weight - Head Head exam: Present: normal inspection - Eye Eye exam: Present: EOMI Pupils: Present: PHYLICIA - ENT ENT exam: Present: normal exam - Neck Neck exam: Present: normal inspection - Respiratory Respiratory exam: Present: clear to auscultation bilaterally - Cardiovascular Cardiovascular exam: Present: regular rate and rhythm - GI/Abdominal GI/Abdominal exam: Present: normal bowel sounds - Extremities Exam Extremities exam: Present: normal inspection - Back Exam Back exam: Present: normal inspection - Neurological Exam Neurological exam: Present: alert, other (Patient is very appropriate. He does have some left-sided weakness but this is old.) - Psychiatric Psychiatric exam: Present: other (Visual hallucinations) - Skin Skin exam: Present: normal color Results - Labs CBC & BMP: 12/02/16 21:50 12/02/16 21:50
[2016-12-03] MEDS ORDERED: GLUCAGON 1 MG VIAL IM PRN ×2 (10:39)
[2016-12-03] MEDS ORDERED: DEXTROSE 50% 25 GM/50 ML VIAL IV PRN ×2 (10:39)
[2016-12-03] MEDS: INSULIN REGULAR 100 UNIT/ML SUBCUT SCH ×3 (11:17→21:05)
[2016-12-03] MEDS: PANTOPRAZOLE 40 MG TABLET PO SCH (11:17)
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
[2016-12-03] MEDS: NICOTINE 21 MG/24 HR PATCH TRANSDERM SCH (16:57)
[2016-12-03] MEDS: CARVEDILOL 12.5 MG TABLET PO SCH (16:58)
[2016-12-03] MEDS: metFORMIN 500 MG TABLET PO SCH (16:58)
[2016-12-03] MEDS ORDERED: MIRTAZAPINE 30 MG TABLET PO SCH (21:00)
[2016-12-03] MEDS: GABAPENTIN 100 MG CAPSULE PO SCH (21:00)
[2016-12-03] MEDS ORDERED: ARIPiprazole 5 MG TABLET PO SCH (21:00)
[2016-12-03] MEDS ORDERED: ATORVASTATIN 20 MG TABLET PO SCH (21:00)
[2016-12-04] MEDS: metFORMIN 500 MG TABLET PO SCH ×3 (08:59→17:27)
[2016-12-04] MEDS: GABAPENTIN 100 MG CAPSULE PO SCH (08:59)
[2016-12-04] MEDS: INSULIN REGULAR 100 UNIT/ML SUBCUT SCH ×3 (09:00→17:27)
[2016-12-04] MEDS ORDERED: ASPIRIN 325 MG TABLET PO SCH (09:00)
[2016-12-04] MEDS: CARVEDILOL 12.5 MG TABLET PO SCH ×2 (09:00→17:27)
[2016-12-04] MEDS ORDERED: hydroCHLOROthiazide 25 MG TABLET PO SCH (09:00)
[2016-12-04] MEDS ORDERED: VALSARTAN 160 MG TABLET PO SCH (09:00)
[2016-12-04] MEDS: NICOTINE 21 MG/24 HR PATCH TRANSDERM SCH (09:00)
[2016-12-04] MEDS: PANTOPRAZOLE 40 MG TABLET PO SCH (09:00)
[2016-12-04] MEDS ORDERED: amLODIPine 10 MG TABLET PO SCH (09:00)
--- NOTE | 2016-12-04 14:24 | Discharge Summary ---
Specialty Discharge - Follow Up or Referrals Discharge Plan - Discharge Data Disposition: Disch/Xfer to Psych Hos - Discharge Medications New ARIPiprazole [Abilify] 5 mg PO BEDTIME tablet Aspirin Tab 325 mg PO DAILY tablet Atorvastatin [Lipitor] 20 mg PO BEDTIME tablet Carvedilol [Coreg] 12.5 mg PO BID W/MEALS tablet Insulin Regular [HumuLIN R] See Protocol SUBCUT ACHS unit Mirtazapine [Remeron] 30 mg PO BEDTIME tablet Nicotine 21 mg/24 Hr Patch [Nicoderm CQ 21 mg/24 hr Patch] 1 patch TRANSDERM DAILY patch Pantoprazole Tab [Protonix Tab] 40 mg PO DAILY tablet Valsartan [Diovan] 320 mg PO DAILY tablet hydroCHLOROthiazide [Hydrochlorothiazide] 25 mg PO DAILY tablet metFORMIN [Glucophage] 500 mg PO TID W/MEALS tablet Gabapentin Cap/Tab [Neurontin Cap/Tab] 200 mg PO BID capsule amLODIPine [Norvasc] 10 mg PO DAILY tablet Continue Metoclopramide Tab [Reglan Tab] 5 mg PO ACHS #120 tablet NS Discontinued amLODIPine [Norvasc] 10 mg PO DAILY Mirtazapine [Remeron] 30 mg PO BEDTIME ARIPiprazole [Aripiprazole] 5 mg PO BEDTIME Amlodipine/Valsartan/Hcthiazid [Xkchl-Avuvz-Oqvw 10-320-25 mg] 1 each PO DAILY Carvedilol [Coreg] 12.5 mg PO BID metFORMIN [Glucophage] 500 mg PO TID W/MEALS #90 tablet Atorvastatin [Lipitor] 20 mg PO BEDTIME #30 tablet Aspirin Tab 325 mg PO DAILY #100 tablet Gabapentin Cap/Tab [Neurontin Cap/Tab] 200 mg PO BID #100 capsule - Follow Up or Referral - Forms/Instructions Instructions: Hypertension (DC), Altered Mental Status (GEN) Exam - Constitutional Vitals: Period Temp Pulse Resp BP Sys/Sin Pulse Ox Last 24 Hr 97.3 F-98.6 F 64-98 18-20 121-158/69-92 93-96 Discharge Results Labs on day of discharge: Labs from last 24 hours 12/04/16 12/04/16 12/04/16 11:55 07:18 06:53 POC Glucose 202 H 189 H 168 H 12/03/16 12/03/16 21:03 16:20 POC Glucose 203 H 182 H DS: Provider Date of admission: 12/03/16 01:11 Primary care physician: Desire Nathan MD Attending physician on admission: Cas Hurtado MD Consults: 12/03/16 01:42 Consult to Case Mgmt/Social Srvs [CONS] Routine Reason for Case Mgmt/Social Srvs: Psychiatric Management Consult Comment: Please have patient evaluate by [facility] Discharging clinician: Gabbi Levin NP
--- NOTE | 2016-12-04 16:31 | Discharge Summary ---
Hospital Course - Hospital Course Hospital Course: Mr. Jenkins is a 70 year old white male patient that presented to the ED on with complaints of symptoms of stroke, confusion, numbness to lower legs bilaterally, weakness, left eye drop, and visual hallucinations. Pt. has a pmh of htn, bipolar disorder, depression. Pt's CT head showed stable old infarct. Pt has no overnight acute event. Pt's mental status and motor activity back to his baseline. Pt agrees to be transferred to Geripsych unit for further care for his psychiatric disease. Diagnosis - Discharge Diagnosis (1) Hypertension Status: Chronic (2) Diabetes type 2, uncontrolled Status: Acute (3) History of CVA in adulthood Status: Chronic (4) Delirium due to another medical condition Status: Acute (5) Hallucination Status: Acute Specialty Discharge - Follow Up or Referrals Discharge Plan - Discharge Data Disposition: Disch/Xfer to Psych Hos Condition at Discharge: Stable Discharge Diet: diabetic diet, heart healthy Activity: resume usual activities as tolerated Hygiene: no restrictions Weight Bearing at Discharge: weight bear as tolerated - Discharge Medications New ARIPiprazole [Abilify] 5 mg PO BEDTIME tablet Aspirin Tab 325 mg PO DAILY tablet Atorvastatin [Lipitor] 20 mg PO BEDTIME tablet Carvedilol [Coreg] 12.5 mg PO BID W/MEALS tablet Insulin Regular [HumuLIN R] See Protocol SUBCUT ACHS unit Mirtazapine [Remeron] 30 mg PO BEDTIME tablet Nicotine 21 mg/24 Hr Patch [Nicoderm CQ 21 mg/24 hr Patch] 1 patch TRANSDERM DAILY patch Pantoprazole Tab [Protonix Tab] 40 mg PO DAILY tablet Valsartan [Diovan] 320 mg PO DAILY tablet hydroCHLOROthiazide [Hydrochlorothiazide] 25 mg PO DAILY tablet metFORMIN [Glucophage] 500 mg PO TID W/MEALS tablet Gabapentin Cap/Tab [Neurontin Cap/Tab] 200 mg PO BID capsule amLODIPine [Norvasc] 10 mg PO DAILY tablet Continue Metoclopramide Tab [Reglan Tab] 5 mg PO ACHS #120 tablet NS Discontinued amLODIPine [Norvasc] 10 mg PO DAILY Mirtazapine [Remeron] 30 mg PO BEDTIME ARIPiprazole [Aripiprazole] 5 mg PO BEDTIME Amlodipine/Valsartan/Hcthiazid [Azjlo-Ykubb-Dahj 10-320-25 mg] 1 each PO DAILY Carvedilol [Coreg] 12.5 mg PO BID metFORMIN [Glucophage] 500 mg PO TID W/MEALS #90 tablet Atorvastatin [Lipitor] 20 mg PO BEDTIME #30 tablet Aspirin Tab 325 mg PO DAILY #100 tablet Gabapentin Cap/Tab [Neurontin Cap/Tab] 200 mg PO BID #100 capsule - Follow Up or Referral - Forms/Instructions Instructions: Hypertension (DC), Altered Mental Status (GEN) Exam - Constitutional Vitals: Period Temp Pulse Resp BP Sys/Sin Pulse Ox Last 24 Hr 97.3 F-98.6 F 64-98 18-20 121-158/69-92 93-96 Exam: GENERAL: NAD, AAOx3. Lying in bed supine HEENT: Pupils equally round and reactive to light, conjunctivae clear. TMs ware and translucent. Oropharynx pink, with moist mucous membranes. Normal lips, teeth and gums. NECK: Supple without mass. HEART: RRR, no murmur. CHEST: Normal shape, good air movement, no retractions. CV: RRR, no murmurs, 2+ peripheral pulses LUNGS: Clear to auscultation; no rales, rhonchi, or wheezes. ABDOMEN: Soft, nontender, and no hepatosplenomegaly. SKIN: No rash or edema. LYMPH: No anterior or posterior cervical, or supraclavicular lymphadenopathy. NEURO: No gross motor deficits noted Discharge Results Labs on day of discharge: Labs from last 24 hours 12/04/16 12/04/16 12/04/16 11:55 07:18 06:53 POC Glucose 202 H 189 H 168 H 12/03/16 12/03/16 21:03 16:20 POC Glucose 203 H 182 H - Imaging and Cardiology Procedure: CT: report reviewed by me (Stable remote infarct) DS: Provider Date of admission: 12/03/16 01:11 Primary care physician: Desire Nathan MD Attending physician on admission: Cas Hurtado MD Consults: 12/03/16 01:42 Consult to Case Mgmt/Social Srvs [CONS] Routine Reason for Case Mgmt/Social Srvs: Psychiatric Management Consult Comment: Please have patient evaluate by [facility] Discharging clinician: Christiano Waller MD Expected date of discharge: 12/04/16 (To geripsych unit)
[2016-12-04 16:39] VITALS: BP 142/90
--- NOTE | 2016-12-04 16:41 | Hospitalist Progress Note ---
Assessment and Plan (1) Hypertension Status: Chronic Assessment and plan: Resume home meds appropriately. Current Visit: No (2) Diabetes type 2, uncontrolled Status: Acute Assessment and plan: Resume home meds appropriately, monitor glucose level in am. BMP in am. Current Visit: No (3) History of CVA in adulthood Status: Chronic Assessment and plan: Consult PT. Current Visit: No (4) Delirium due to another medical condition Status: Acute Assessment and plan: Refer to psych Current Visit: No (5) Hallucination Status: Acute Assessment and plan: Refer to Psych, [place] beds available soon. Current Visit: Yes Hospitalist: Subjective Interval history: No overnight acute event. Mental status and motor status back to his baseline. Deny fever, headache, chest pain, abd pain, N/V/D, rash, dysuria, or edema Exam - Constitutional Vitals: Period Temp Pulse Resp BP Sys/Sin Pulse Ox Last 24 Hr 97.3 F-98.3 F 64-84 18-20 121-158/69-92 93-95 Exam: GENERAL: NAD, AAOx3. HEENT: Pupils equally round and reactive to light, conjunctivae clear. Normal lips, teeth and gums. NECK: Supple without mass. HEART: RRR, no murmur. CHEST: Normal shape, good air movement, no retractions. CV: RRR, no murmurs, 2+ peripheral pulses LUNGS: Clear to auscultation; no rales, rhonchi, or wheezes. ABDOMEN: Soft, nontender, and no hepatosplenomegaly. SKIN: No rash or edema. NEURO: No gross motor deficits noted Results - Labs CBC & BMP: 12/02/16 21:50 12/02/16 21:50 Specialty Discharge - Follow Up or Referrals
== END 2016-12-04 18:48 ==
LOC: N.ED 21:24 → N.EDINP 21:24 → N.5E 12-03 10:42
PROVIDERS: ADMIT Internal Medicine Cardiovascular Disease; ATTEND Internal Medicine Cardiovascular Disease